=== PATIENT | male | born 1970 | race Caucasian/White ===

== ENCOUNTER 2024-03-01 14:39 | Outpatient (CLI) | payer SELFPAY | END 2024-03-01 23:59 | LOC: RAD 14:39 | PROVIDERS: PCP Family Medicine; Visit Provider Family Medicine | DX: Z13.6 Encounter for screening for cardiovascular disorders (principal) | CPT/HCPCS: 75571 ==

== ENCOUNTER 2024-04-17 16:16 | Outpatient (POV) | payer BC, SELFPAY | END 2024-04-17 23:59 | disposition home or self-care (01) | LOC: SC 16:16 | PROVIDERS: PCP Family Medicine; Visit Provider Dermatology | DX: Z00.00 Encounter for general adult medical examination without abnormal findings (principal) ==